=== PATIENT | female | born 1980 | race American Indian/Alaskan Native ===

== ENCOUNTER 2022-02-04 14:38 | Emergency (ER) | payer OTHER ==
[2022-02-04 15:09] VITALS: BP 154/104
[2022-02-04 15:53] LABS: Hematocrit 41.2 % (30.3-42.9); Mean Corpuscular HGB Conc 34 % (30-34); Mean Corpuscular Volume 92 fl (79-97); Platelet Count 344 K/mm3 (140-440); Red Cell Distribution Width 14.4 % (13.2-15.2)
--- NOTE | 2022-02-04 15:55 | Cat Scan Report ---
CT head/brain wo con INDICATION: dizziness. TECHNIQUE: CT head. All CT scans at this location are performed using CT dose reduction for ALARA by means of automated exposure control. COMPARISON: None. FINDINGS: Intracranial: Aburto-white matter differentiation is maintained. No intracranial hemorrhage. No extra a xial collection. No hydrocephalus. No herniation. Sinuses: Paranasal sinuses and mastoid air cells are essentially clear. Orbits: Globes are intact. Calvarium: No acute fracture. IMPRESSION: 1. No acute intracranial abnormality. Signer Name: Yong Casanova MD Signed: 02/04/2022 3:50 PM Workstation Name: [id number]
[2022-02-04 15:57] LABS: Alanine Aminotransferase 94 units/L (7-56); Albumin 4.7 g/dL (3.9-5); BUN/Creatinine Ratio 12; Blood Urea Nitrogen 12 mg/dL (7-17); Calcium 9.1 mg/dL (8.4-10.2); Hemolysis Index 9
[2022-02-04 16:18] LABS: Bilirubin,Urine NEG (Negative); Blood,Urine SM (Negative); Color,Urine Yellow (Yellow); Urobilinogen,Urine < 2 mg/dL (<2.0)
[2022-02-04 16:32] LABS: Granular Casts,Urine 1 /LPF; Mucus,Urine FEW /HPF
--- NOTE | 2022-02-04 16:39 | XRay Report ---
CHEST 2 VIEWS INDICATION: dizziness. COMPARISON: 08/14/2019 FINDINGS: SUPPORT DEVICES: None. HEART: Within normal limits. LUNGS/PLEURA: No acute air space or interstitial disease. 9 mm nodular density in the right upper lo be. ADDITIONAL FINDINGS: None. IMPRESSION: 1. No acute findings. 2. Incidental right upper lobe pulmonary nodule. Signer Name: Juan Moore MD Signed: 02/04/2022 4:35 PM Workstation Name: [id number]
[2022-02-04] MEDS ORDERED: KETOROLAC 60 MG/2 ML INJ IM ONE (16:47)
[2022-02-04] MEDS ORDERED: MECLIZINE 25 MG TAB PO ONE (16:47)
--- NOTE | 2022-02-04 16:53 | Emergency Department Report ---
ED Dizziness HPI - General Chief Complaint: Dizziness Stated Complaint: DIZZINESS Time Seen by Provider: 02/04/22 16:30 Source: patient Mode of arrival: Ambulatory Limitations: No Limitations - History of Present Illness Initial Comments: 41-year-old female with a history of morbid obesity, hypertension, and diabetes presents to the hospital with complaints of intermittent dizziness sensation for the past 2 days. Patient having intermittent spinning sensation with associated nausea and vomiting. At times she also develops palpitations and feels weak with episodes. She also complains of intermittent moderate left temporal headache without aggravating relieving factor. She denies chest pain, persistent shortness of breath, or ringing sensation in her ears. - Related Data Previous Rx's Medication Instructions Recorded Last Taken Type Ipratropium/Albuterol Sulfate 1 ampul IH TIDRT #90 ampul.neb 08/14/19 Unknown Rx [DUONEB *Not for PRN Use*] Ibuprofen [Motrin] 800 mg PO Q8HR PRN #20 tablet 02/04/22 Unknown Rx Meclizine [Antivert] 25 mg PO TID PRN #30 tab 02/04/22 Unknown Rx Ondansetron [Zofran ODT TAB] 4 mg PO Q4H PRN #20 tab.rapdis 02/04/22 Unknown Rx Allergies Allergy/AdvReac Type Severity Reaction Status Date / Time No Known Allergies Allergy Verified 08/10/19 13:48 ED Review of Systems ROS: Stated complaint: DIZZINESS Other details as noted in HPI Comment: All other systems reviewed and negative ED Past Medical Hx - Past Medical History Hx Hypertension: Yes Hx Diabetes: Yes - Surgical History Past Surgical History?: No - Social History Smoking Status: Never Smoker - Medications Home Medications: Home Medications Medication Instructions Recorded Confirmed Last Taken Type Ipratropium/Albuterol Sulfate 1 ampul IH TIDRT #90 ampul.neb 08/14/19 Unknown Rx [DUONEB *Not for PRN Use*] Ibuprofen [Motrin] 800 mg PO Q8HR PRN #20 tablet 02/04/22 Unknown Rx Meclizine [Antivert] 25 mg PO TID PRN #30 tab 02/04/22 Unknown Rx Ondansetron [Zofran ODT TAB] 4 mg PO Q4H PRN #20 tab.rapdis 02/04/22 Unknown Rx ED Physical Exam - General Limitations: No Limitations - Other Other exam information: General: No acute distress Head: Atraumatic Eyes: normal appearance, nystagmus noted with lateral left and right gauge with exacerbation of dizziness symptoms. Patient also has dizziness/spinning sensation with standing ENT: Moist mucous membranes Neck: Normal appearance, no midline tenderness Chest: Clear to auscultation bilaterally CV: Regular rate and rhythm Abdomen: Soft, normal bowel sounds, nontender, nondistended, no rebound or guarding Back: Normal inspection Extremity: Normal inspection, full range of motion Neuro: Alert O x 3, no facial asymmetry, speech clear, no gross motor sensory deficit, [id number] function at Psych: Appropriate behavior Skin: No rash ED Course Vital Signs 02/04/22 15:05 Temperature 98.9 F Pulse Rate 105 H Respiratory 14 Rate Blood Pressure 154/104 [Left] O2 Sat by Pulse 98 Oximetry - Reevaluation(s) Reevaluation #1: 02/04/22 18:38 Patient feels much better with IM Toradol and p.o. meclizine. States that dizziness and headache have resolved ED Medical Decision Making - Lab Data Result diagrams: 02/04/22 15:16 02/04/22 15:16 Lab Results 02/04/22 02/04/22 02/04/22 Range/Units 15:16 15:16 Unknown WBC 5.3 (4.5-11.0) K/mm3 RBC 4.50 (3.65-5.03) M/mm3 Hgb 14.0 (10.1-14.3) gm/dl Hct 41.2 (30.3-42.9) % MCV 92 (79-97) fl MCH 31 (28-32) pg MCHC 34 (30-34) % RDW 14.4 (13.2-15.2) % Plt Count 344 (140-440) K/mm3 Sodium 134 L (137-145) mmol/L Potassium 4.2 (3.6-5.0) mmol/L Chloride 98.9 (98-107) mmol/L Carbon Dioxide 22 (22-30) mmol/L Anion Gap 17 mmol/L BUN 12 (7-17) mg/dL Creatinine 1.0 (0.6-1.2) mg/dL Estimated GFR > 60 ml/min BUN/Creatinine Ratio 12 % Glucose 188 H (65-100) mg/dL Calcium 9.1 (8.4-10.2) mg/dL Total Bilirubin 0.30 (0.1-1.2) mg/dL AST 69 H (5-40) units/L ALT 94 H (7-56) units/L Alkaline Phosphatase 66 (35-129) units/L Troponin T < 0.010 (0.00-0.029) ng/mL Total Protein 7.9 (6.3-8.2) g/dL Albumin 4.7 (3.9-5) g/dL Albumin/Globulin Ratio 1.5 % Urine Color Yellow (Yellow) Urine Turbidity Clear (Clear) Urine pH 5.0 (5.0-7.0) Ur Specific [place] 1.028 (1.003-1.030) Urine Protein 30 mg/dl (Negative) mg/dL Urine Glucose (UA) >=500 (Negative) mg/dL Urine Ketones Neg (Negative) mg/dL Urine Blood Sm (Negative) Urine Nitrite Neg (Negative) Urine Bilirubin Neg (Negative) Urine Urobilinogen < 2 (<2.0) mg/dL Ur Leukocyte Esterase Neg (Negative) Urine WBC (Auto) 0.0 (0.0-6.0) /HPF Urine RBC (Auto) 1.0 (0.0-6.0) /HPF U Epithel Cells (Auto) 1.0 (0-13.0) /HPF Granular Casts 1 /LPF Urine Mucus Few /HPF - EKG Data -: EKG Interpreted by [place] EKG shows normal: sinus rhythm, ST-T waves (NO STEMI) Rate: tachycardia - Radiology Data Radiology results: report reviewed CT head/brain wo con INDICATION: dizziness. TECHNIQUE: CT head. All CT scans at this location are performed using CT dose reduction for ALARA by means of automated exposure control. COMPARISON: None. FINDINGS: Intracranial: Aburto-white matter differentiation is maintained. No intracranial hemorrhage. No extra axial collection. No hydrocephalus. No herniation. Sinuses: Paranasal sinuses and mastoid air cells are essentially clear. Orbits: Globes are intact. Calvarium: No acute fracture. IMPRESSION: 1. No acute intracranial abnormality. CHEST 2 VIEWS INDICATION: dizziness. COMPARISON: 08/14/2019 FINDINGS: SUPPORT DEVICES: None. HEART: Within normal limits. LUNGS/PLEURA: No acute air space or interstitial disease. 9 mm nodular density in the right upper lobe. ADDITIONAL FINDINGS: None. IMPRESSION: 1. No acute findings. 2. Incidental right upper lobe pulmonary nodule. - Medical Decision Making 41-year female presents to the hospital complaining of symptoms of vertigo and left-sided headache. ED work-up including labs, chest x-ray, CT head unremarkable for acute abnormality. Incidental pulm nodule noted and patient provided a copy of her chest x-ray to take to her doctor for further monitoring. Symptoms improved after receiving meclizine and Toradol. Patient be discharge d with meds and outpatient follow-up encouraged Critical Care Time: No Critical care attestation.: If time is entered above; I have spent that time in minutes in the direct care of this critically ill patient, excluding procedure time. ED Disposition Clinical Impression: Vertigo, Pulmonary nodule Disposition: HOME / SELF CARE / HOMELESS Is pt being admited?: No Does the pt Need Aspirin: No Condition: Stable Instructions: Pulmonary Nodule, Vertigo Additional Instructions: Take the medication as prescribed. Follow-up with your doctor for further monitoring of your pulmonary nodule identified on your chest x-ray. Take the copy of the x-ray report provided to your doctor for further outpatient monitoring and follow-up . Return if symptoms worsen as indicated by your discharge instructions. Prescriptions: Meclizine [Antivert] 25 mg PO TID PRN #30 tab PRN Reason: Vertigo Ibuprofen [Motrin] 800 mg PO Q8HR PRN #20 tablet PRN Reason: Pain , Severe (7-10) Ondansetron [Zofran ODT TAB] 4 mg PO Q4H PRN #20 tab.rapdis PRN Reason: Nausea Referrals: PRIMARY CARE, [Primary Care Provider] - 3-5 Days Time of Disposition: 18:43
--- NOTE | 2022-02-06 11:57 | Electrocardiograph Report ---
[facility] Test Date: 2022-02-04 Test Time: 15:08:02 Pat Name: MARIIA LOPEZ Department: Room: Gender: F Home Health Specialist: AF : 1980 Requested By: RUSH SAAVEDRA Order Number: [id number] Reading MD: Andrew Montgomery Measurements Intervals [place]on Rate: 101 P: 68 MS: 160 QRS: 79 QRSD: 62 T: 61 QT: 339 QTc: 439 Interpretive Statements Sinus tachycardia No previous ECG available for comparison Electronically Signed On 02-06-2022 8:57:32 PDT by Andrew Montgomery
== END 2022-02-04 19:22 | disposition home or self-care (01) ==
LOC: ED 14:38
DX: R42 Dizziness and giddiness (principal); R91.1 Solitary pulmonary nodule; I10 Essential (primary) hypertension; E11.9 Type 2 diabetes mellitus without complications
CPT/HCPCS: 36415; 70450; 71046; 80053; 81001; 84484; 85027; 93005; 96372; 99284; J1885